=== PATIENT | male | born 1965 | race Caucasian/White ===

== ENCOUNTER 2017-09-10 16:34 | Emergency (ER) | payer SELFPAY ==
[~2017-09-10] VITALS: Ht 167.6 cm; Wt 79.4 kg
[~2017-09-10 16:34] MED LIST: AMOXICILLIN500 MG PO; CLINDAMYCIN HC300 MG PO; FLONASE 0.05% 121 EA NAS; HYDROCODONE BIT1 T11 PO; Motrin,Rufen800 MG PO; VICODIN ES 7501 TAB PO
[2017-09-10 17:51] LABS: BASO # 0.1 10*3/uL (0.0-0.1); BASO % 0.6 % (0.0-1.0); EOS # 0.2 10*3/uL (0.0-0.4); EOS % 2.1 % (1.0-4.0); HEMATOCRIT 42.3 % (42.0-52.0); HEMOGLOBIN 14.1 g/dl (14.0-18.0); LYMPH # 1.7 10*3/uL (1.3-4.4); LYMPH % 21.3 % (27.0-41.0); MEAN CELL VOLUME 91.4 fl (80.0-94.0); MEAN CORPUSCULAR HGB 30.5 pg (27.0-31.0); MEAN CORPUSCULAR HGB CONC 33.3 g/dl (33.0-37.0); MEAN PLATELET VOLUME 9.4 fl (9.6-12.3); MONO # 0.7 10*3/uL (0.1-1.0); MONO % 8.4 % (3.0-9.0); NEUT # 5.3 10*3/uL (2.3-7.9); NEUT % 67.3 % (47.0-73.0); PLATELET COUNT AUTOMATED 306 10*3/uL (130-400); RED BLOOD COUNT 4.63 10*6/uL (4.50-5.90); RED CELL DISTRI WIDTH 14.4 % (0-14.5); WHITE BLOOD COUNT 7.9 10*3/uL (4.8-10.8)
[2017-09-10 18:05] LABS: ALKALINE PHOSPHATASE 82 U/L (45-117); BUN 13 mg/dl (7-24); CHLORIDE 104 mmol/L (98-107); CREATININE 0.82 mg/dL (0.70-1.30); LIPASE 87 U/L (73-393); SGOT/AST 19 IU/L (3-35); SGPT/ALT 16 U/L (12-78); SODIUM 137 mmol/L (136-145); TOTAL PROTEIN 7.7 gm/dL (6.4-8.2)
[2017-09-10 18:08] LABS: TROPONIN I < 0.015 ng/ml (<0.045)
[2017-09-10 18:10] LABS: ACT PARTIAL THROMBO TIME 29.9 SECONDS (20.8-31.5)
== END 2017-09-10 20:17 | disposition home or self-care (01) ==
LOC: ED 16:34
PROVIDERS: Physician Assistant
DX: R60.0 Localized edema (principal); R05 Cough; F17.200 Nicotine dependence, unspecified, uncomplicated; Z79.899 Other long term (current) drug therapy

== ENCOUNTER 2023-04-10 03:02 | Emergency (ER) | payer OTHER ==
[~2023-04-10] VITALS: Ht 175.2 cm; Wt 81.6 kg
== END 2023-04-10 03:10 ==
LOC: ED 03:02
DX: I46.9 Cardiac arrest, cause unspecified (principal)